=== PATIENT | male | born 1940 | race Caucasian/White ===

== ENCOUNTER 2017-05-24 14:29 | Inpatient (IN) | payer MEDICARE, BC ==
[~2017-05-24] VITALS: Ht 182.9 cm; Wt 72.2 kg
[~2017-05-24 14:29] MED LIST: ANTIVERT 12.512.5 MG PO; ARTANE 2MG2 MG PO; ASPIRIN E.C. 8181 MG PO; ATIVAN 1MG T1 MG/TAB PO; CALCIUM200 MG PO; FLAXSEED OIL1 CAP; FLEXERIL10 MG PO; FLOMAX 0.40.4 MG/CAP PO; LORAZEPAM1 MG PO; LORTAB 5/500 501 TAB PO; MECLAZINE; MULTIPLE VITAMI1 CAP PO; NAPROSYN500 MG PO; OMEGA-3 FISH1200 MG PO; PERC2.5TAB PO; PHENERGAN 25 TA25 MG PO; PRILOSEC 20MG20 MG PO; PROAIR HFA0.09 MG/AC IH; QUINAPRIL10 MG PO; REQUIP 1MG T1 MG/TAB PO; ROPINIROLE HYDRO1 MG PO; SELEGILINE PO; SINEMET CR1 UDTAB.S1 PO; SPIRIVA18 MCG IH; VITAMIN D31000 IU PO; ZOFRAN 4MG T4 MG/TAB PO; [UNRECOGNIZED DRUG - OTHER] PO
[2017-05-24 15:30] LABS: BASO % 0.3 % (0.0-2.0); EOS % 0.2 % (0-4.0); GRAN # 11.7 (1.4-6.5); GRAN % 87.5 % (42.2-75.2); HEMATOCRIT 44.9 % (42.0-52.0); HEMOGLOBIN 15.3 g/dl (13.5-18.0); LYMPH % 7.6 % (20.0-51.0); MEAN CELL VOLUME 94 fl (80.0-100.0); MEAN CORPUSCULAR HEMOGLOBIN 32 pg (27.0-31.0); MEAN CORPUSCULAR HGB CONC 34 g/dl (33.0-37.0); MEAN PLATELET VOLUME 10.8 fl (7.4-10.4); MONO # 0.5 (0.1-0.6); MONO % 3.9 % (1.7-9.3); PLATELET COUNT 225 K/mm3 (130-400); WHITE BLOOD COUNT 13.3 K/mm3 (4.8-10.8)
[2017-05-24 15:53] LABS: PH 5 (5-8); SQUAMOUS EPITHELIAL 0-2 /hpf; URINE APPEARANCE Clear; URINE BACTERIA Rare /hpf; URINE BILIRUBIN Negative (NEGATIVE); URINE BLOOD 2+ (NEGATIVE); URINE COLOR Yellow; URINE GLUCOSE Negative (NEGATIVE); URINE KETONE Trace (NEGATIVE); URINE RBC 0-2 /hpf; URINE UROBILINOGEN Negative (NEGATIVE); URINE WBC 0-2 /hpf
[2017-05-24] MEDS ORDERED: RT SPIRIVA18 MCG IH (15:59)
[2017-05-24] MEDS ORDERED: ACCURETIC 12.51 TAB PO (16:01)
[2017-05-24 16:38] LABS: ADJUSTED CALCIUM 9.2 mg/dL (8.4-10.2); ALBUMIN 3.5 gm/dL (3.5-5.0); BILIRUBIN,TOTAL 1.6 mg/dL (0.0-1.0); CALCIUM 8.8 mg/dL (8.4-10.2); CREATININE, serum 1.18 mg/dL (0.66-1.25); POTASSIUM 3.6 mmol/L (3.4-5.0); TOTAL PROTEIN 6.8 gm/dL (6.4-8.2)
[2017-05-24 16:41] LABS: INR 1.2 (0.8-3.0); PROTHROMBIN TIME 13.4 SECONDS (9.7-12.8)
[2017-05-24 16:47] LABS: TROPONIN-I 0.029 ng/mL (0.000-0.034)
[2017-05-24 20:41] VITALS: BP 111/61; PULSE 92; TEMP 98.4
[2017-05-25 00:07] VITALS: BP 106/56; PULSE 84; TEMP 98.4
[2017-05-25 04:02] VITALS: BP 99/52; PULSE 76; TEMP 98.7
[2017-05-25 06:36] LABS: CALCIUM 7.7 mg/dL (8.4-10.2); CREATININE, serum 0.97 mg/dL (0.66-1.25); POTASSIUM 3.2 mmol/L (3.4-5.0)
[2017-05-25 08:34] VITALS: BP 108/64; PULSE 78; TEMP 98.5
[2017-05-25 11:26] VITALS: BP 112/69; PULSE 85; TEMP 99
[2017-05-25 15:45] VITALS: BP 97/60; PULSE 94; TEMP 98.4
[2017-05-25 20:51] VITALS: BP 106/63; PULSE 93; TEMP 98.2
[2017-05-26 00:34] VITALS: BP 114/74; PULSE 84; TEMP 97.7
[2017-05-26 04:34] VITALS: BP 144/81; PULSE 79; TEMP 98.2
[2017-05-26 07:33] VITALS: BP 137/79; PULSE 79; TEMP 97.1
[2017-05-26 07:44] LABS: CREATININE, serum 0.79 mg/dL (0.66-1.25); POTASSIUM 3.1 mmol/L (3.4-5.0)
[2017-05-26 11:31] VITALS: BP 134/71; PULSE 83; TEMP 97.4
[2017-05-26 15:44] VITALS: BP 129/86; PULSE 84; TEMP 97.1
[2017-05-26 20:39] VITALS: BP 150/79; PULSE 78; TEMP 97.5
[2017-05-27 00:35] VITALS: BP 124/75; PULSE 68; TEMP 97.8
[2017-05-27 05:11] VITALS: BP 121/64; PULSE 71; TEMP 97.9
[2017-05-27 07:34] VITALS: BP 141/78; PULSE 72; TEMP 97.9
[2017-05-27 11:38] VITALS: BP 138/66; PULSE 75; TEMP 98.6
[2017-05-27 12:48] VITALS: BP 132/79; PULSE 83; TEMP 97.4
[2017-05-27] MEDS ORDERED: SINEMET CR1 UDTAB.S1 PO (14:39)
[2017-05-27] MEDS ORDERED: KLOR-CON M2020 MEQ PO (14:43)
[2017-05-27] MEDS ORDERED: ZOFRAN INJ4 MG/2 ML PO (14:45)
== END 2017-05-27 16:50 | disposition home or self-care (01) | DRG 566 ==
LOC: COL.ER 14:29 → MEDICAL 18:03
PROVIDERS: Emergency Medicine
PROC: 0HQ1XZZ Repair Face Skin, External Approach (ICD-10-PCS; principal; 2017-05-24)
DX: T79.6XXA Traumatic ischemia of muscle, initial encounter (principal); G20 Parkinson's disease; Z66 Do not resuscitate; F02.80 Dementia in other diseases classified elsewhere, unspecified severity, without behavioral disturbance, psychotic disturbance, mood disturbance, and anxiety; S01.112A Laceration without foreign body of left eyelid and periocular area, initial encounter; W18.30XA Fall on same level, unspecified, initial encounter; D32.0 Benign neoplasm of cerebral meninges
CPT/HCPCS: A4315; J2405; J7030

== ENCOUNTER 2017-06-30 10:15 | Outpatient (RCR) | payer MEDICARE, BC ==
[~2017-06-30 10:15] MED LIST changes: +ACCURETIC 12.51 TAB PO; +KLOR-CON M2020 MEQ PO; +RT SPIRIVA18 MCG IH; +ZOFRAN INJ4 MG/2 ML PO
== END 2017-08-31 | disposition still patient (30) ==
LOC: MKS.ESL.PT
DX: M62.82 Rhabdomyolysis (principal); G20 Parkinson's disease; F02.80 Dementia in other diseases classified elsewhere, unspecified severity, without behavioral disturbance, psychotic disturbance, mood disturbance, and anxiety; W18.30XD Fall on same level, unspecified, subsequent encounter
CPT/HCPCS: G8978-GP; G8979-GP

== ENCOUNTER 2018-11-27 15:59 | Emergency (ER) | payer MEDICARE, BC ==
[~2018-11-27] VITALS: Ht 180.3 cm; Wt 75.0 kg
[~2018-11-27 15:59] MED LIST changes: +OMEGA-3 1000 MG1 CAP PO; -OMEGA-3 FISH1200 MG PO
[2018-11-27 16:19] VITALS: TEMP 98.3
[2018-11-27] MEDS ORDERED: VENTOLIN0.09 MG IH (16:54)
[2018-11-27] MEDS ORDERED: INCRUSE EL62.5 MCG/A IH (16:54)
[2018-11-27 20:27] VITALS: BP 121/95; PULSE 99
== END 2018-11-27 20:27 | disposition home or self-care (01) ==
LOC: COL.ER 15:59
DX: S06.0X0A Concussion without loss of consciousness, initial encounter (principal); I10 Essential (primary) hypertension; G20 Parkinson's disease; Z79.82 Long term (current) use of aspirin; W10.9XXA Fall (on) (from) unspecified stairs and steps, initial encounter

== ENCOUNTER → 2019-10-24 | Outpatient (CLI) | payer MEDICARE, BC ==
[~2019-10-24] MED LIST changes: +INCRUSE EL62.5 MCG/A IH; +VENTOLIN0.09 MG IH
== END ==
LOC: COL.VAS 10:02
DX: I08.1 Rheumatic disorders of both mitral and tricuspid valves (principal); R60.0 Localized edema

== ENCOUNTER 2021-02-19 14:40 | Inpatient (IN) | payer MEDICARE, BC ==
[~2021-02-19] VITALS: Ht 180.3 cm; Wt 73.6 kg
[2021-02-19 15:03] LABS: BASO % 0.3 % (0.0-2.0); EOS % 0.2 % (0-4.0); GRAN # 9.2 (1.4-6.5); GRAN % 84.1 % (42.2-75.2); HEMATOCRIT 45.7 % (42.0-52.0); LYMPH # 0.7 (1.2-3.4); LYMPH % 6.3 % (20.0-51.0); MEAN CELL VOLUME 95 fl (80.0-100.0); MEAN CORPUSCULAR HEMOGLOBIN 31 pg (27.0-31.0); MEAN CORPUSCULAR HGB CONC 33 g/dl (33.0-37.0); MEAN PLATELET VOLUME 9.5 fl (7.4-10.4); MONO # 0.9 (0.1-0.6); MONO % 8.6 % (1.7-9.3); PLATELET COUNT 192 K/mm3 (130-400); RED BLOOD COUNT 4.81 M/mm3 (4.20-5.60); REDCELL DISTRIBUTION WIDTH-CV 13.5 % (11.5-14.5)
[2021-02-19 15:14] LABS: ALBUMIN 4.1 gm/dL (3.5-5.0); BILIRUBIN,TOTAL 1.5 mg/dL (0.0-1.0); C-REACTIVE PROTEIN 5.6 mg/dL (0.0-0.9); CALCIUM 8.9 mg/dL (8.4-10.2); CREATININE, serum 1.93 (0.66-1.25); POTASSIUM 3.9 mmol/L (3.4-5.0); TOTAL PROTEIN 7.8 gm/dL (6.4-8.2)
[2021-02-19 16:03] LABS: COLLECTION METHOD CATHETER
[2021-02-19 16:29] LABS: BUDDING YEAST Present /hpf; MUCOUS Present /lpf; PH 5 (5-8); SQUAMOUS EPITHELIAL 0-2 /hpf; URINE APPEARANCE Cloudy; URINE BACTERIA Rare /hpf; URINE BILIRUBIN Negative (NEGATIVE); URINE BLOOD 3+ (NEGATIVE); URINE COLOR Yellow; URINE GLUCOSE Negative (NEGATIVE); URINE KETONE Trace (NEGATIVE); URINE LEUKOCYTE ESTERASE Negative (NEGATIVE); URINE NITRATE Negative (NEGATIVE); URINE PROTEIN(semi-quant) 2+ (NEGATIVE); URINE RBC 0-2 /hpf; URINE UROBILINOGEN Negative (NEGATIVE)
[2021-02-19] MEDS ORDERED: GOCOVRI137 MG PO (18:15)
[2021-02-19] MEDS ORDERED: ATIVAN 1MG T1 MG/TAB PO (18:16)
[2021-02-19] MEDS ORDERED: ACCURETIC 12.51 TAB PO (18:17)
[2021-02-19] MEDS ORDERED: SINEMET 25/101 UDTAB PO (18:18)
[2021-02-19] MEDS ORDERED: PRILOSEC 20MG20 MG PO (18:19)
[2021-02-19] MEDS ORDERED: REQUIP 1MG T1 MG/TAB PO (18:19)
[2021-02-19] MEDS ORDERED: BROVANA15 MCG/2 M IH (18:24)
[2021-02-19 19:05] VITALS: BP 134/81; PULSE 93
[2021-02-19 20:30] LABS: MAGNESIUM 2.5 mg/dL (1.6-2.3)
[2021-02-19 23:30] VITALS: BP 131/78; PULSE 88; TEMP 98
[2021-02-20 03:22] LABS: BASO # 0.1 (0.0-0.2); BASO % 0.7 % (0.0-2.0); EOS # 0.1 (0.0-0.7); EOS % 1.4 % (0-4.0); GRAN # 6.9 (1.4-6.5); GRAN % 79.7 % (42.2-75.2); HEMATOCRIT 39.1 % (42.0-52.0); LYMPH # 0.8 (1.2-3.4); LYMPH % 9.5 % (20.0-51.0); MEAN CELL VOLUME 97 fl (80.0-100.0); MEAN CORPUSCULAR HEMOGLOBIN 32 pg (27.0-31.0); MEAN CORPUSCULAR HGB CONC 33 g/dl (33.0-37.0); MEAN PLATELET VOLUME 9.4 fl (7.4-10.4); MONO # 0.7 (0.1-0.6); MONO % 8.1 % (1.7-9.3); PLATELET COUNT 168 K/mm3 (130-400); RED BLOOD COUNT 4.03 M/mm3 (4.20-5.60); REDCELL DISTRIBUTION WIDTH-CV 13.8 % (11.5-14.5)
[2021-02-20 03:26] LABS: HEMOGLOBIN 12.7 g/dl (13.5-18.0)
[2021-02-20 03:33] VITALS: BP 114/65; PULSE 80; TEMP 98.1
[2021-02-20 03:36] LABS: CALCIUM 7.9 mg/dL (8.4-10.2); CREATININE, serum 1.41 (0.66-1.25); POTASSIUM 3.6 mmol/L (3.4-5.0)
--- NOTE | 2021-02-20 07:10 | NUR ---
PATIENT ADMITTED OVERNIGHT. ADMISSION PAPERWORK/CHARTING COMPLETE. PT HOME MEDS IN MED BIN AND ONE INHALER WAS GIVEN TO DAY NURSE, LURDES. PATIENT RESTED WELL OVERNIGHT. IVF GIVEN AND URINE OUTPUT MONITORED. CALLED [facility]IT[facility] [place] TO [place]. NO INTERVENTIONS NEEDED DUE TO TRENDING DOWN. REPORT GIVEN TO LURDES AND CARE RELINQUISHED AT THIS TIME.
[2021-02-20 08:01] VITALS: BP 112/69; PULSE 84; TEMP 97.9
[2021-02-20 13:12] VITALS: BP 118/76; PULSE 83; TEMP 98
[2021-02-20 13:16] LABS: HEMATOCRIT 41.6 % (42.0-52.0); HEMOGLOBIN 13.3 g/dl (13.5-18.0)
--- NOTE | 2021-02-20 14:27 | NUR ---
PATTY met with the patient and his brother, Ayaan (ph#[phone]), to discuss discharge plan. The patient lives alone in [place]. Ayaan lives in [place]. He reports independence with ADLs before his falls and has a walker. The patient's PCP is Dr. Rudy Hall and he receives his medications from [facility]. The patient's DPOA-HC is in EMR and it designates his brother, Ayaan, and the alternate is his sister, Izabella. Ayaan reports that with the patients recent falls and weakness, they would be interested in post-acute rehab upon discharge. PATTY provided Ayaan with Medicare.gov's list of SNFs in the [place] area. Ayaan reports that the patient's daughter, Monica, will be coming up from [place] tomorrow and that he would like to go over the options with her. Ayaan was agreeable for PATTY to go ahead and send referrals to the [place] facilities. PATTY consulted [place] with [facility]. PATTY contacted and faxed a referral to [facility], and [facility]. Awaiting screens. *Discharge plan: post-acute rehab*
--- NOTE | 2021-02-20 15:01 | NUR ---
First visit from the solar installer pv. Chaplain aly for patient.
--- NOTE | 2021-02-20 16:35 | NUR ---
Lizeth, at [facility], reports that they are able to accept the patient for a skilled stay.
[2021-02-20 16:45] VITALS: BP 148/93; PULSE 82; TEMP 98
[2021-02-20 20:05] VITALS: BP 119/56; PULSE 88; TEMP 98
--- NOTE | 2021-02-20 21:49 | NUR ---
ALERT AND OX3. DENIES SOA,CHEST PAIN OR DIZZY. ASSESSMENT DONE. DENIES ANY PAIN. PM MEDS GIVEN. POC DISCUSSED. NEEDS MET.
[2021-02-21] VITALS (8 sets, daily range): BP systolic 121–156; BP diastolic 60–80; PULSE 78–100; TEMP 97.7–98.9
--- NOTE | 2021-02-21 05:03 | NUR ---
Rested through the night without incident. Needs met.
[2021-02-21 06:16] LABS: BASO % 0.5 % (0.0-2.0); EOS # 0.2 (0.0-0.7); EOS % 3.4 % (0-4.0); GRAN # 4.2 (1.4-6.5); GRAN % 71.4 % (42.2-75.2); HEMATOCRIT 38.1 % (42.0-52.0); HEMOGLOBIN 12.4 g/dl (13.5-18.0); LYMPH # 0.9 (1.2-3.4); LYMPH % 14.5 % (20.0-51.0); MEAN CELL VOLUME 96 fl (80.0-100.0); MEAN CORPUSCULAR HEMOGLOBIN 31 pg (27.0-31.0); MEAN CORPUSCULAR HGB CONC 33 g/dl (33.0-37.0); MEAN PLATELET VOLUME 9.7 fl (7.4-10.4); MONO # 0.6 (0.1-0.6); MONO % 9.7 % (1.7-9.3); PLATELET COUNT 155 K/mm3 (130-400); RED BLOOD COUNT 3.96 M/mm3 (4.20-5.60); REDCELL DISTRIBUTION WIDTH-CV 13.6 % (11.5-14.5)
[2021-02-21 06:29] LABS: CALCIUM 8.4 mg/dL (8.4-10.2); CREATININE, serum 0.96 (0.66-1.25)
[2021-02-21 06:54] LABS: PHOSPHOROUS 2.4 mg/dL (2.5-4.5)
--- NOTE | 2021-02-21 08:00 | NUR ---
Patient laying in bed, A&Ox3 intermittently confused. Nurse assisted the patient with ordering breakfast. VSS. IV CDI, fluids infusing. Denies pain and discomfort. No further needs expressed from the patient. Call light within reach. Bed alarm on
--- NOTE | 2021-02-21 13:26 | NUR ---
Jinny, with [facility], reports that the soonest they would be able to take the patient would be on Wednesday. The patient may be able to d/c tomorrow, 02/22. PATTY met with the patient and his brother, Ayaan, to follow up on preference and update on referrals. Ayaan reports that their first preference is [facility]. He states that he has already been in contact with Lizeth at [facility]. He states that they do not have a second preference. PATTY notified Lizeth at [facility]. PATTY updated the PA and requested a COVID test. PATTY faxed updates to [facility], [facility], and [facility]. *Discharge plan: [facility]*
--- NOTE | 2021-02-21 17:58 | NUR ---
Patient had an uneventful day. A&Ox3, with intermittent confusion. VSS. IV CDI. Denies pain and discomfort. Kelly dependent drainage. Patient repostioned to eat dinner. No further needs expressed from the patient. Call light within reach. Bed alarm on
[2021-02-22 04:00] VITALS: BP 159/84; PULSE 53; TEMP 97.6
--- NOTE | 2021-02-22 05:32 | NUR ---
Don has a ambrosio his been sleeping all night without any complains. Have some confusion this morning when he wake up but otherwise he is calm. Took his pills good. Bed alarm is on and call light with in reach.
[2021-02-22 06:43] VITALS: BP 166/78; PULSE 92; TEMP 97.7
[2021-02-22 06:51] LABS: BASO % 0.8 % (0.0-2.0); EOS # 0.2 (0.0-0.7); EOS % 3.4 % (0-4.0); GRAN # 3.2 (1.4-6.5); HEMATOCRIT 38.5 % (42.0-52.0); HEMOGLOBIN 12.5 g/dl (13.5-18.0); LYMPH # 0.8 (1.2-3.4); LYMPH % 16.2 % (20.0-51.0); MEAN CELL VOLUME 96 fl (80.0-100.0); MEAN CORPUSCULAR HEMOGLOBIN 31 pg (27.0-31.0); MEAN CORPUSCULAR HGB CONC 33 g/dl (33.0-37.0); MEAN PLATELET VOLUME 9.7 fl (7.4-10.4); MONO # 0.5 (0.1-0.6); MONO % 10.5 % (1.7-9.3); PLATELET COUNT 162 K/mm3 (130-400); RED BLOOD COUNT 4.02 M/mm3 (4.20-5.60); REDCELL DISTRIBUTION WIDTH-CV 13.4 % (11.5-14.5)
[2021-02-22 07:00] LABS: ALBUMIN 3.1 gm/dL (3.5-5.0); CALCIUM 8.6 mg/dL (8.4-10.2); CREATININE, serum 0.89 (0.66-1.25); POTASSIUM 3.8 mmol/L (3.4-5.0)
[2021-02-22 07:09] LABS: PHOSPHOROUS 2.7 mg/dL (2.5-4.5)
--- NOTE | 2021-02-22 08:00 | NUR ---
Patient shouting out help, nurse went to the room and the patient informed the nurse that he needed to get out of bed and go home. Nurse reoriented the patient and informed the patient that he is not leaving yet to [facility]. Nurse assisted with ordering breakfast. A&Ox3, with intermittent confusion. VSS. IV CDI. Call light within reach. Bed alarm on
[2021-02-22] MEDS ORDERED: ACCUPRIL20TAB PO (10:04)
--- NOTE | 2021-02-22 10:28 | NUR ---
Kelly removed, pericare provided before and after removal. 10ml water out of balloon, tip intact. Patient instructed to call nursing staff when needing to void. Call light within reach. Bed alarm on
--- NOTE | 2021-02-22 11:25 | NUR ---
Notifed brother Ayaan and client of pending DC to [facility], Notified Lizeth at [facility]. Awaiting DC orders.
--- NOTE | 2021-02-22 12:42 | NUR ---
DC order finalized and Faxed to [facility] [phone] and Transport time is 1:30 P.m. Notified nurse NF.
== END 2021-02-22 13:30 | DRG 56 ==
LOC: COL.ER 14:40 → MEDICAL 17:48
PROVIDERS: Emergency Medicine; Nurse Practitioner Family; ADMIT Emergency Medicine
DX: G20 Parkinson's disease (principal); I21.A1 Myocardial infarction type 2; N17.9 Acute kidney failure, unspecified; E86.0 Dehydration; F02.80 Dementia in other diseases classified elsewhere, unspecified severity, without behavioral disturbance, psychotic disturbance, mood disturbance, and anxiety; I95.1 Orthostatic hypotension; I10 Essential (primary) hypertension; H81.10 Benign paroxysmal vertigo, unspecified ear; T79.6XXA Traumatic ischemia of muscle, initial encounter; G90.9 Disorder of the autonomic nervous system, unspecified; M25.552 Pain in left hip; D32.9 Benign neoplasm of meninges, unspecified; M25.551 Pain in right hip; J44.9 Chronic obstructive pulmonary disease, unspecified; Z85.51 Personal history of malignant neoplasm of bladder; Z20.822 Contact with and (suspected) exposure to COVID-19
CPT/HCPCS: 99223-AI; 99233-AI; 99239; J1644; J7030; J7040; J7120

== ENCOUNTER → 2021-03-23 | Outpatient (REF) ==
[~2021-03-23] MED LIST changes: +ACCUPRIL20TAB PO; +BROVANA15 MCG/2 M IH; +GOCOVRI137 MG PO; +SINEMET 25/101 UDTAB PO
[2021-03-23 10:45] LABS: COLLECTION METHOD CLEAN CATCH
[2021-03-23 10:50] LABS: BASO % 0.2 % (0.0-2.0); GRAN # 14.7 (1.4-6.5); GRAN % 86.9 % (42.2-75.2); HEMATOCRIT 45.3 % (42.0-52.0); HEMOGLOBIN 14.7 g/dl (13.5-18.0); LYMPH # 1.1 (1.2-3.4); LYMPH % 6.6 % (20.0-51.0); MEAN CELL VOLUME 95 fl (80.0-100.0); MEAN CORPUSCULAR HEMOGLOBIN 31 pg (27.0-31.0); MEAN CORPUSCULAR HGB CONC 33 g/dl (33.0-37.0); MEAN PLATELET VOLUME 9.6 fl (7.4-10.4); MONO # 0.9 (0.1-0.6); MONO % 5.6 % (1.7-9.3); PLATELET COUNT 175 K/mm3 (130-400); RED BLOOD COUNT 4.78 M/mm3 (4.20-5.60); REDCELL DISTRIBUTION WIDTH-CV 13.8 % (11.5-14.5)
[2021-03-23 10:54] LABS: MUCOUS Present /lpf; PH 6 (5-8); SQUAMOUS EPITHELIAL None Seen /hpf; URINE APPEARANCE Turbid; URINE BACTERIA Occasional /hpf; URINE BILIRUBIN Negative (NEGATIVE); URINE BLOOD 1+ (NEGATIVE); URINE COLOR Amber; URINE GLUCOSE Negative (NEGATIVE); URINE KETONE Trace (NEGATIVE); URINE LEUKOCYTE ESTERASE 2+ (NEGATIVE); URINE NITRATE Positive (NEGATIVE); URINE PROTEIN(semi-quant) 2+ (NEGATIVE); URINE RBC 20-50 /hpf; URINE UROBILINOGEN Negative (NEGATIVE); URINE WBC >50 /hpf
[2021-03-23 10:59] LABS: ALBUMIN 3.7 gm/dL (3.5-5.0); BILIRUBIN,TOTAL 1.6 mg/dL (0.0-1.0); CALCIUM 9.3 mg/dL (8.4-10.2); CREATININE, serum 1.18 (0.66-1.25); POTASSIUM 4.2 mmol/L (3.4-5.0); TOTAL PROTEIN 7.1 gm/dL (6.4-8.2)
== END ==
LOC: ZCOL.LAB 10:38
PROVIDERS: Internal Medicine
DX: R82.998 Other abnormal findings in urine (principal); R30.0 Dysuria